=== PATIENT | male | born 1985 | race Caucasian/White ===

== ENCOUNTER 2023-04-14 10:37 | Emergency (ER) | payer OTHER, SELFPAY ==
[2023-04-14] VITALS (10 sets, daily range): BP systolic 126–147; BP diastolic 85–100; PULSE 49–63; RESP 12–22; TEMP 36.2–36.4; O2SAT 97–100
--- NOTE | ~2023-04-14 | XR_ITS ---
EXAMINATION: XR tibia fibula RT 2V INDICATION: Right leg pain TECHNIQUE: Two views of the COMPARISON: None available FINDINGS: No acute fracture, dislocation, or subluxation. The bones, soft tissues, and joint spaces a re normal. There is an old fracture of the lateral malleolus. IMPRESSION: 1. No acute osseous abnormality. Reviewed, dictated and finalized at location B. [employer] SAFETY ADMINISTRATOR
--- NOTE | 2023-04-14 11:02 | ED.GENADULT ---
HPI - General Adult General Chief complaint: Fall Stated complaint: fall Time Seen by Provider: 04/14/23 10:50 History of Present Illness HPI narrative: This patient 37-year-old gentleman who presents emergency department chief complaint of right blankenship pain. The patient states that he has felt nauseated since the injury and has been diaphoretic. The patient states that he has a large abrasion present to his right blankenship reports it is painful even to touch patient is unsure if he struck his head remembers the impact and remembers intense pain to his leg Related Data Allergies Allergy/AdvReac Type Severity Reaction Status Date / Time No Known Allergies Allergy Verified 04/14/23 11:16 Review of Systems Review of Systems: A 10 system review of systems was completed on the patient and is negative except for what is stated in the HPI. Nursing and ancillary documentation was reviewed. Exam Narrative: GENERAL: Well-appearing, well-nourished, and in no acute distress. HEAD: Normocephalic, atraumatic. EYES: PERRLA and EOMI. ENT: Nares clear, no rhinorrhea or epistaxis. Mucous membranes moist. NECK: Supple. CHEST: Clear to auscultation. No respiratory distress. HEART: Regular rate and rhythm. No murmur heard. Normal peripheral pulses. ABDOMEN: Soft, nontender, nondistended, normal active bowel sounds. EXTREMITIES: Normal range of motion. No edema. SKIN: Warm, dry, no rash. Large abrasion present to the right blankenship NEURO: No focal deficits. Alert and oriented x3. PSYCH: Normal mood and affect. Course Vital Signs Vital signs: Vital Signs Pulse Rate 62 04/14/23 10:45 Respiratory Rate 12 04/14/23 10:45 Blood Pressure 147/93 H 04/14/23 10:45 Pulse Oximetry 98 04/14/23 10:45 Temperature 36.2 C L 04/14/23 10:50 Pulse Rate 58 L 04/14/23 12:17 Respiratory Rate 15 04/14/23 12:17 Blood Pressure 140/89 04/14/23 12:17 Pulse Oximetry 97 04/14/23 12:17 Oxygen Delivery Room Air 04/14/23 10:50 Medical Decision Making [facility] Narrative Medical decision making narrative: Differential diagnosis includes fracture,, contusion, abrasion Plain film x-ray showed no evidence of fracture Patient was feeling much better after he was able to relax and get his pain under control The patient was able to ambulate without difficulty Patient's tetanus status was updated Vital Signs Vital Signs: Vital Signs Pulse Rate 62 04/14/23 10:45 Respiratory Rate 12 04/14/23 10:45 Blood Pressure 147/93 H 04/14/23 10:45 Pulse Oximetry 98 04/14/23 10:45 Temperature 36.2 C L 04/14/23 10:50 Pulse Rate 58 L 04/14/23 12:17 Respiratory Rate 15 04/14/23 12:17 Blood Pressure 140/89 04/14/23 12:17 Pulse Oximetry 97 04/14/23 12:17 Oxygen Delivery Room Air 04/14/23 10:50 Discharge Plan Discharge Clinical Impression: Fall on stairs, Abrasion of right leg Patient Disposition: Home, Self-Care Condition: Stable Instructions: Antibiotic Form, Contusion in Adults (ED), Abrasion (ED) Follow-up/Referrals: PHYSICIAN NOT ON STAFF,NONSTAFF [Primary Care Provider] - Time of Disposition: 12:30
[2023-04-14] MEDS: HYDROcodone/acetaminophen (*CRX) 5-325 MG TABLET 1 TAB PO (11:22)
[2023-04-14] MEDS: TETANUS,DIPHTHERIA,AC PERTUSSIS ADULT (0.5 ML) BOOSTRIX IM (11:22)
[2023-04-14] MEDS: Please add drug allergy info to patient profile. 1 EACH XX (11:22)
--- NOTE | 2023-04-14 12:37 | PC.NURSE ---
ambulated well without assistance
== END 2023-04-14 12:56 | disposition home or self-care (01) ==
PROVIDERS: Emergency Provider Emergency Medicine
DX: S80.811A Abrasion, right lower leg, initial encounter (principal); Z23 Encounter for immunization; W10.9XXA Fall (on) (from) unspecified stairs and steps, initial encounter
CPT/HCPCS: 73590; 90471; 90715; 99283; A9270

== ENCOUNTER 2023-09-27 14:53 | Outpatient (CLI) | payer OTHER, SELFPAY ==
--- NOTE | ~2023-09-27 | CT_ITS ---
CT brain wo con Ordering provider: Roberta Benavidez, BROADCAST CHECKER History: 38 years Male with . Syncope, recurrent . Comparison: None. Technique: CT of the head without contrast. Radiation reduction technique utilized. The dose-length product was 599.7 mGy-cm. FINDINGS: BRAIN PARENCHYMA AND CSF SPACES: No midline shift, mass effect or hemorrhage. The brain parenchyma a nd CSF spaces are otherwise normal. VISUALIZED PARANASAL SINUSES: Well aerated. MASTOIDS: Well aerated. BONES: The bones appear intact. SOFT TISSUES: Visualized nasopharynx is normal. Superficial soft tissues are normal. IMPRESSION: No acute intracranial findings. Reviewed, dictated and finalized at location A.
== END 2023-09-27 14:54 ==
LOC: MICIMG 14:55
PROVIDERS: PCP Nurse Practitioner Family; Visit Provider Nurse Practitioner Family
DX: R55 Syncope and collapse (principal)
CPT/HCPCS: 70450